=== PATIENT | female | born 1975 | race African-American/Black ===

== ENCOUNTER → 2017-03-23 | Outpatient (CLI) | payer OTHER ==
[~2017-03-23] VITALS: Ht 170.2 cm; Wt 113.4 kg
--- NOTE | ~2017-03-23 | EKG ---
[place] [address] [facility] [place] [address] ELECTROCARDIOGRAM REPORT Name: DARION MOSLEY #: REG CLI Esteban#: [id number] Admission: 03/23/17 Attend Phys: Hospital Physician - S Discharge: Date of : 73 Report #: [id number] THIS REPORT FOR: //name// [facility] ED Test Date: 2017-03-23 Test Time: 09:56:45 Pat Name: DARION SIMPSONRACHANAByron DEWEYDepartment: Room: Gender: Developer Relations Manager: Fernando LUND : 1975 Requested By: Zo Paz Order Number: [id number] MD: José Bustillo Measurements Intervals [place] Rate: 70 P: 35 ME: 197 QRS: 7 QRSD: 99 T: -3 QT: 408 QTc: 441 Interpretive Statements Sinus rhythm Borderline T abnormalities, inferior leads No previous ECG available for comparison Electronically Signed On 03-26-2017 8:26:04 CDT by José Bustillo [email or web address] <ELECTRONICALLY SIGNED> By: José Bustillo MD 03/26/17 0826 [id number] José Bustillo MD /[facility]
[2017-03-23 10:08] LABS: ABSOLUTE NEUTROPHILS 2.9 thou/uL (1.4-8.2); BASOPHILS 0.4 % (0.0-2.0); EOSINOPHILS 1.4 % (0.0-3.0); HEMATOCRIT 34.6 % (37.0-47.0); HEMOGLOBIN 11.3 gm/dL (12.0-15.0); LYMPHOCYTES 33.7 % (24.0-44.0); MCH 26.3 pg (26.0-34.0); MCHC 32.8 g/dL (28.0-37.0); MCV 80.2 fL (80.0-100.0); MONOCYTES 8.4 % (1.0-8.0); PLATELET COUNT 363 thou/uL (150-400); POLYS 56.1 % (36.0-66.0); RBC 4.31 mil/uL (4.20-5.00); WBC 5.2 thou/uL (4.0-11.0)
[2017-03-23 10:10] LABS: MANUAL DIFF NO
[2017-03-23 10:15] LABS: ANION GAP 7 mmol/L (7-16); BUN 9 mg/dL (7-18); CALCIUM 8.9 mg/dL (8.5-10.1); CHLORIDE 104 mmol/L (98-107); CO2 24 mmol/L (21-32); CREATININE 0.7 mg/dL (0.6-1.0); GLUCOSE 101 mg/dL (74-106); POTASSIUM 3.9 mmol/L (3.5-5.1); SODIUM 135 mmol/L (136-145)
[2017-03-23 10:23] LABS: TROPONIN-I < 0.04 ng/mL (<0.04-0.07)
[2017-03-23 12:03] VITALS: BP 139/65
== END ==
LOC: RAD 08:52
PROVIDERS: Nurse Practitioner Family
DX: Z12.31 Encounter for screening mammogram for malignant neoplasm of breast (principal); R07.9 Chest pain, unspecified; R05 Cough

== ENCOUNTER → 2017-03-29 | Outpatient (CLI) | payer OTHER | LOC: ULTRA 01:28 → RAD 08:33 → ULTRA 08:43 | DX: N63 Unspecified lump in breast (principal) ==